=== PATIENT | female | born 1950 | race Caucasian/White ===

== ENCOUNTER 2016-09-12 11:53 | Inpatient (IN) | payer OTHER ==
[~2016-09-12] VITALS: Ht 152.4 cm; Wt 95.8 kg
[~2016-09-12 11:53] MED LIST: ATORVASTATIN CA80 MG PO; CEFTIN250 MG PO; CIPRO500 MG PO; CLINDAMYCIN HC300 MG PO; CONSTULOSE10 GM/15 M PO; COUMADIN1 MG PO; COUMADIN5 MG PO; DOXYCYCLINE HY100 MG PO; DULCOLAX5 MG PO; HYDROMORPHONE HC4 MG PO; K-DUR20 MEQ PO; LOVENOX100 MG/1 M SC; METRONIDAZOLE500 MG PO; MORPHINE SULFAT15 M1 PO; MORPHINE SULFAT30 M2 PO; MOVANTIK25 MG PO; MS CONTIN,ORAMO30 MG PO; PERCOCET 5/31 TABLET PO; PROBIOTIC1 EAC1 PO; ROXICODONE5 MG PO; SALINE NASAL SP45 ML BOTH NARES; VITAMIN E400 UNIT PO; WARFARIN SODIUM1 MG PO; WOMEN'S DAILY1 EAC1 PO; WOMEN'S DAILY1 EAC2 PO; XARELTO15 MG PO
[2016-09-12 13:16] LABS: HEMATOCRIT 29.7 % (36.0-46.0); MCH 23.2 PG (29.0-34.0); MEAN PLAT.VOLUME 9.6 uM^3 (9.5-12.4); PLATELET COUNT 440 K/uL (156-360); RBC DIS.WIDTH-CV 20.4 % (11.8-14.6); RBC DIS.WIDTH-SD 53.1 % (39-53); RED BLOOD COUNT 3.96 M/uL (3.80-5.20)
[2016-09-12 13:27] LABS: CHLORIDE 104 mEq/L (99-109); POTASSIUM 4.6 mEq/L (3.7-5.4); SODIUM 136 mEq/L (136-147)
[2016-09-12 13:29] LABS: GLUCOSE 121 mg/dL (70-99)
[2016-09-12 13:30] LABS: ANION GAP 13 MEQ/L (2-14)
[2016-09-12 13:32] LABS: GFR ESTIMATE (CALCULATED) 13 mL/min/
[2016-09-12 13:33] LABS: TROP-I INTERPRETATION NEGATIVE; TROPONIN-I < 0.01 ng/mL (0.0-0.30); UREA NITROGEN (BUN) 52 mg/dL (9-23)
[2016-09-12 13:42] LABS: ADD MIUA? YES; BILIRUBIN NEGATIVE; BLOOD MODERATE; GLUCOSE (STRIP) NEGATIVE; KETONES NEGATIVE; LEUKOCYTES LARGE; NITRITE NEGATIVE; PROTEIN (STRIP) >=300; SPECIFIC GRAVITY 1.017 (1.000-1.030); UROBILINOGEN 0.2 MG/DL (0.2-1.0)
[2016-09-12 13:43] LABS: COLOR LT YELLOW ((YELLOW))
[2016-09-12 14:27] LABS: WHITE BLOOD CELLS TNTC /HPF (0-5)
[2016-09-12 14:28] LABS: UCUL ADDED? YES
[2016-09-12] MEDS ORDERED: WARFARIN SODIUM1 MG PO (15:10)
[2016-09-12 17:51] LABS: INTER. NORMALIZED RATIO 3.1; PROTHROMBIN TIME 32.7 (9.2-11.2)
[2016-09-12 21:06] VITALS: BP 135/63
[2016-09-12 23:10] VITALS: BP 138/63
[2016-09-12 23:30] VITALS: BP 135/62
[2016-09-13 06:59] LABS: HEMATOCRIT 24.7 % (36.0-46.0); MCH 23.5 PG (29.0-34.0); MCHC 30.8 G/DL (30.0-36.0); MCV 76.2 FL (83-99); MEAN PLAT.VOLUME 9.5 uM^3 (9.5-12.4); PLATELET COUNT 358 K/uL (156-360); RBC DIS.WIDTH-CV 20.7 % (11.8-14.6); RBC DIS.WIDTH-SD 58.5 % (39-53); RED BLOOD COUNT 3.24 M/uL (3.80-5.20); WHITE BLOOD COUNT 7.9 K/uL (4.1-10.2)
[2016-09-13 07:02] LABS: INTER. NORMALIZED RATIO 3.5; PROTHROMBIN TIME 36.6 (9.2-11.2)
[2016-09-13 07:23] LABS: ALKALINE PHOSPHATASE 135 IU/L (3-129); ANION GAP 10 MEQ/L (2-14); CHLORIDE 106 MEQ/L (99-109); POTASSIUM 5.1 MEQ/L (3.7-5.4); SAMPLE HEMOLYSIS CHECK 0; SAMPLE ICTERIC CHECK 0; SAMPLE LIPEMIA CHECK 0; SODIUM 136 MEQ/L (136-147); TOTAL BILIRUBIN 0.4 MG/DL (0.0-1.0); UREA NITROGEN (BUN) 44 mg/dL (9-23)
[2016-09-13 07:37] LABS: GFR ESTIMATE (CALCULATED) 16 mL/min/; GLUCOSE 87 mg/dL (70-99)
[2016-09-13 08:00] VITALS: BP 132/70
[2016-09-13 12:52] LABS: HEMATOCRIT 26.3 % (36.0-46.0); MCV 78.3 FL (83-99)
[2016-09-13 16:41] VITALS: BP 140/73
[2016-09-13 22:51] VITALS: BP 122/70
[2016-09-14 07:17] LABS: HEMATOCRIT 27.5 % (36.0-46.0); MCH 23.5 PG (29.0-34.0); MCHC 30.2 G/DL (30.0-36.0); MCV 77.9 FL (83-99); MEAN PLAT.VOLUME 9.3 uM^3 (9.5-12.4); PLATELET COUNT 363 K/uL (156-360); RBC DIS.WIDTH-CV 20.6 % (11.8-14.6); RED BLOOD COUNT 3.53 M/uL (3.80-5.20)
[2016-09-14 07:44] LABS: ANION GAP 12 MEQ/L (2-14); CHLORIDE 101 MEQ/L (99-109); GFR ESTIMATE (CALCULATED) 16 mL/min/; GLUCOSE 77 mg/dL (70-99); POTASSIUM 4.1 MEQ/L (3.7-5.4); SAMPLE HEMOLYSIS CHECK 0; SAMPLE ICTERIC CHECK 0; SAMPLE LIPEMIA CHECK 0; SODIUM 133 MEQ/L (136-147); UREA NITROGEN (BUN) 42 mg/dL (9-23)
[2016-09-14 07:57] VITALS: BP 140/71
[2016-09-14 14:20] LABS: PROTHROMBIN TIME 60.2 (9.2-11.2)
[2016-09-14 14:22] LABS: INTER. NORMALIZED RATIO 5.6
[2016-09-14 14:23] LABS: HEM NON-PRINT 2 RPT-NC
[2016-09-14 16:07] VITALS: BP 128/75
[2016-09-14 23:25] VITALS: BP 134/67
[2016-09-15 06:19] LABS: PROTHROMBIN TIME 61.2 (9.2-11.2)
[2016-09-15 06:31] LABS: INTER. NORMALIZED RATIO 5.7
[2016-09-15 07:28] VITALS: BP 122/68
[2016-09-15 16:15] VITALS: BP 142/76
[2016-09-15 22:40] VITALS: BP 108/62
[2016-09-16 07:02] LABS: PROTHROMBIN TIME 120.5 (9.2-11.2)
[2016-09-16 07:51] LABS: ANION GAP 12 MEQ/L (2-14); CHLORIDE 103 MEQ/L (99-109); GFR ESTIMATE (CALCULATED) 22 mL/min/; GLUCOSE 90 mg/dL (70-99); POTASSIUM 3.9 MEQ/L (3.7-5.4); SAMPLE HEMOLYSIS CHECK 0; SAMPLE ICTERIC CHECK 0; SAMPLE LIPEMIA CHECK 0; SODIUM 133 MEQ/L (136-147); UREA NITROGEN (BUN) 33 mg/dL (9-23)
[2016-09-16 08:00] VITALS: BP 140/52
[2016-09-16 12:00] VITALS: BP 130/52
[2016-09-16 16:00] VITALS: BP 132/78
[2016-09-17 00:25] VITALS: BP 125/76
[2016-09-17 06:53] LABS: INTER. NORMALIZED RATIO 1.6; PROTHROMBIN TIME 16.7 (9.2-11.2)
[2016-09-17 07:52] VITALS: BP 107/55
[2016-09-17 16:05] VITALS: BP 105/50
[2016-09-17 23:09] VITALS: BP 114/55
[2016-09-18 06:53] LABS: EOSINOPHIL (%) 3.2 % (0-5); EOSINOPHIL COUNT 0.1 K/uL (0-0.3); HEMATOCRIT 25.3 % (36.0-46.0); LYMPHOCYTE COUNT 0.3 K/uL (1.0-2.8); MCH 23.2 PG (29.0-34.0); MCHC 30.8 G/DL (30.0-36.0); MCV 75.3 FL (83-99); MEAN PLAT.VOLUME 8.9 uM^3 (9.5-12.4); MONOCYTE (%) 10.4 % (3-12); MONOCYTE COUNT 0.5 K/uL (0-0.8); NEUTROPHIL (%) 79.4 % (45-76); NEUTROPHIL COUNT 3.5 K/uL (1.8-6.4); PLATELET COUNT 404 K/uL (156-360); RBC DIS.WIDTH-CV 20.5 % (11.8-14.6); RBC DIS.WIDTH-SD 56.9 % (39-53); RED BLOOD COUNT 3.36 M/uL (3.80-5.20)
[2016-09-18 06:54] LABS: WHITE BLOOD COUNT 4.4 K/uL (4.1-10.2)
[2016-09-18 07:04] LABS: INTER. NORMALIZED RATIO 1.6; PROTHROMBIN TIME 16.1 (9.2-11.2)
[2016-09-18 07:08] LABS: ALKALINE PHOSPHATASE 152 IU/L (3-129); ANION GAP 12 MEQ/L (2-14); CHLORIDE 101 MEQ/L (99-109); GFR ESTIMATE (CALCULATED) 27 mL/min/; GLUCOSE 108 mg/dL (70-99); POTASSIUM 3.7 MEQ/L (3.7-5.4); SAMPLE HEMOLYSIS CHECK 0; SAMPLE ICTERIC CHECK 0; SAMPLE LIPEMIA CHECK 0; SODIUM 131 MEQ/L (136-147); TOTAL BILIRUBIN 0.4 MG/DL (0.0-1.0); UREA NITROGEN (BUN) 28 mg/dL (9-23)
[2016-09-18 07:31] LABS: HEMATOLOGY COMMENT 1 SMEAR COMPATIBLE
[2016-09-18 08:17] VITALS: BP 120/68
[2016-09-18 19:58] VITALS: BP 116/59
[2016-09-18 23:25] VITALS: BP 103/60
[2016-09-19 03:45] VITALS: BP 120/67
[2016-09-19 06:07] LABS: HEMATOCRIT 23.9 % (36.0-46.0); MCH 23.6 PG (29.0-34.0); MCHC 31.4 G/DL (30.0-36.0); MCV 75.2 FL (83-99); MEAN PLAT.VOLUME 8.8 uM^3 (9.5-12.4); PLATELET COUNT 382 K/uL (156-360); RBC DIS.WIDTH-CV 20.6 % (11.8-14.6); RBC DIS.WIDTH-SD 56.9 % (39-53); RED BLOOD COUNT 3.18 M/uL (3.80-5.20); WHITE BLOOD COUNT 4.4 K/uL (4.1-10.2)
[2016-09-19 06:19] LABS: EOSINOPHIL (%) 2.3 % (0-5); EOSINOPHIL COUNT 0.1 K/uL (0-0.3); IMMATURE GRANULOCYTE (%) 0.2 % (0.0-0.7); LYMPHOCYTE COUNT 0.3 K/uL (1.0-2.8); MONOCYTE (%) 12.7 % (3-12); MONOCYTE COUNT 0.6 K/uL (0-0.8); NEUTROPHIL (%) 77.8 % (45-76); NEUTROPHIL COUNT 3.4 K/uL (1.8-6.4)
[2016-09-19 06:33] LABS: ALKALINE PHOSPHATASE 130 IU/L (3-129); ANION GAP 13 MEQ/L (2-14); CHLORIDE 103 MEQ/L (99-109); GFR ESTIMATE (CALCULATED) 32 mL/min/; GLUCOSE 87 mg/dL (70-99); POTASSIUM 3.6 MEQ/L (3.7-5.4); SAMPLE HEMOLYSIS CHECK 0; SAMPLE ICTERIC CHECK 0; SAMPLE LIPEMIA CHECK 0; SODIUM 133 MEQ/L (136-147); TOTAL BILIRUBIN 0.4 MG/DL (0.0-1.0); UREA NITROGEN (BUN) 25 mg/dL (9-23)
[2016-09-19 06:42] LABS: INTER. NORMALIZED RATIO 2.7
[2016-09-19 07:37] LABS: PTT 102.5 (25-32)
[2016-09-19 08:10] VITALS: BP 135/67
[2016-09-19 11:45] VITALS: BP 145/84
[2016-09-19 16:45] VITALS: BP 142/82
[2016-09-19 20:15] VITALS: BP 129/81
[2016-09-20] VITALS (7 sets, daily range): BP systolic 119–142; BP diastolic 69–82
[2016-09-20 07:12] LABS: HEMATOCRIT 25.4 % (36.0-46.0); MCH 23.2 PG (29.0-34.0); MCHC 30.3 G/DL (30.0-36.0); MCV 76.5 FL (83-99); MEAN PLAT.VOLUME 9.3 uM^3 (9.5-12.4); PLATELET COUNT 420 K/uL (156-360); RED BLOOD COUNT 3.32 M/uL (3.80-5.20); WHITE BLOOD COUNT 5.3 K/uL (4.1-10.2)
[2016-09-20 07:26] LABS: ANION GAP 14 MEQ/L (2-14); CHLORIDE 102 MEQ/L (99-109); GFR ESTIMATE (CALCULATED) 35 mL/min/; GLUCOSE 96 mg/dL (70-99); POTASSIUM 3.8 MEQ/L (3.7-5.4); SAMPLE HEMOLYSIS CHECK 0; SAMPLE ICTERIC CHECK 0; SAMPLE LIPEMIA CHECK 0; SODIUM 132 MEQ/L (136-147); UREA NITROGEN (BUN) 24 mg/dL (9-23)
[2016-09-20 08:58] LABS: EOSINOPHIL (%) 1.1 % (0-5); EOSINOPHIL COUNT 0.1 K/uL (0-0.3); HEMATOLOGY COMMENT 1 SMEAR COMPATIBLE; IMMATURE GRANULOCYTE COUNT 0.1 K/uL; LYMPHOCYTE COUNT 0.5 K/uL (1.0-2.8); MONOCYTE COUNT 0.8 K/uL (0-0.8); NEUTROPHIL (%) 74.1 % (45-76); NEUTROPHIL COUNT 3.9 K/uL (1.8-6.4); USER ID STC
[2016-09-20 09:10] LABS: INTER. NORMALIZED RATIO 4.6; PROTHROMBIN TIME 49.4 (9.2-11.2)
[2016-09-20 12:25] LABS: PROTHROMBIN TIME 51.8 (9.2-11.2)
[2016-09-20 13:39] LABS: INTER. NORMALIZED RATIO 4.8
[2016-09-21] VITALS (7 sets, daily range): BP systolic 120–144; BP diastolic 60–76
[2016-09-21 06:44] LABS: HEMATOCRIT 23.7 % (36.0-46.0); MCH 23.8 PG (29.0-34.0); MCHC 32.1 G/DL (30.0-36.0); MCV 74.1 FL (83-99); PLATELET COUNT 398 K/uL (156-360); RBC DIS.WIDTH-CV 20.9 % (11.8-14.6); RBC DIS.WIDTH-SD 57.1 % (39-53); WHITE BLOOD COUNT 4.9 K/uL (4.1-10.2)
[2016-09-21 07:07] LABS: ALKALINE PHOSPHATASE 135 IU/L (3-129); ANION GAP 12 MEQ/L (2-14); CHLORIDE 102 MEQ/L (99-109); GFR ESTIMATE (CALCULATED) 37 mL/min/; GLUCOSE 77 mg/dL (70-99); POTASSIUM 3.6 MEQ/L (3.7-5.4); SAMPLE HEMOLYSIS CHECK 0; SAMPLE ICTERIC CHECK 0; SAMPLE LIPEMIA CHECK 0; SODIUM 132 MEQ/L (136-147); UREA NITROGEN (BUN) 22 mg/dL (9-23)
[2016-09-21 07:08] LABS: TOTAL BILIRUBIN 0.3 MG/DL (0.0-1.0)
[2016-09-21 07:12] LABS: INTER. NORMALIZED RATIO 6.5; PROTHROMBIN TIME 70.3 (9.2-11.2)
[2016-09-21 07:18] LABS: EOSINOPHIL (%) 5.1 % (0-5); EOSINOPHIL COUNT 0.3 K/uL (0-0.3); IMMATURE GRANULOCYTE (%) 0.8 % (0.0-0.7); LYMPHOCYTE COUNT 0.2 K/uL (1.0-2.8); MONOCYTE (%) 16.6 % (3-12); MONOCYTE COUNT 0.8 K/uL (0-0.8); NEUTROPHIL (%) 72.8 % (45-76); NEUTROPHIL COUNT 3.5 K/uL (1.8-6.4)
[2016-09-21 07:53] LABS: HEMATOLOGY COMMENT 1 SMEAR COMPATIBLE; PLAT.SUFFICIENCY INCREASED; USER ID TLW
[2016-09-21 20:57] LABS: POINT-OF-CARE METER ID UU13113717
[2016-09-22 02:45] VITALS: BP 129/75
[2016-09-22 06:10] LABS: MCH 23.7 PG (29.0-34.0); MCHC 32.1 G/DL (30.0-36.0); MCV 73.8 FL (83-99); MEAN PLAT.VOLUME 8.5 uM^3 (9.5-12.4); PLATELET COUNT 330 K/uL (156-360); RBC DIS.WIDTH-CV 20.9 % (11.8-14.6); RED BLOOD COUNT 3.25 M/uL (3.80-5.20); WHITE BLOOD COUNT 5.3 K/uL (4.1-10.2)
[2016-09-22 06:30] LABS: PTT 99.7 (25-32)
[2016-09-22 06:35] LABS: ANION GAP 13 MEQ/L (2-14); CHLORIDE 102 MEQ/L (99-109); GFR ESTIMATE (CALCULATED) 40 mL/min/; GLUCOSE 77 mg/dL (70-99); POTASSIUM 3.5 MEQ/L (3.7-5.4); PROTHROMBIN TIME 58.4 (9.2-11.2); SAMPLE HEMOLYSIS CHECK 0; SAMPLE ICTERIC CHECK 0; SAMPLE LIPEMIA CHECK 0; SODIUM 132 MEQ/L (136-147); UREA NITROGEN (BUN) 22 mg/dL (9-23)
[2016-09-22 06:40] LABS: INTER. NORMALIZED RATIO 5.4
[2016-09-22 08:39] VITALS: BP 121/59
[2016-09-22 11:11] VITALS: BP 119/50
[2016-09-22 15:57] VITALS: BP 123/67
[2016-09-22 19:33] VITALS: BP 137/76
[2016-09-22 23:45] VITALS: BP 124/67
[2016-09-23 04:20] VITALS: BP 125/72
[2016-09-23 06:52] LABS: HEMATOCRIT 23.2 % (36.0-46.0); MCH 23.4 PG (29.0-34.0); MCHC 31.5 G/DL (30.0-36.0); MCV 74.4 FL (83-99); MEAN PLAT.VOLUME 8.8 uM^3 (9.5-12.4); PLATELET COUNT 377 K/uL (156-360); RBC DIS.WIDTH-CV 21.1 % (11.8-14.6); RBC DIS.WIDTH-SD 58.2 % (39-53); RED BLOOD COUNT 3.12 M/uL (3.80-5.20); WHITE BLOOD COUNT 6.6 K/uL (4.1-10.2)
[2016-09-23 07:16] LABS: EOSINOPHIL (%) 2.6 % (0-5); EOSINOPHIL COUNT 0.2 K/uL (0-0.3); IMMATURE GRANULOCYTE (%) 1.2 % (0.0-0.7); IMMATURE GRANULOCYTE COUNT 0.1 K/uL; LYMPHOCYTE COUNT 0.3 K/uL (1.0-2.8); MONOCYTE (%) 10.7 % (3-12); MONOCYTE COUNT 0.7 K/uL (0-0.8); NEUTROPHIL (%) 80.8 % (45-76); NEUTROPHIL COUNT 5.4 K/uL (1.8-6.4)
[2016-09-23 07:28] VITALS: BP 119/67
[2016-09-23 07:31] LABS: ALKALINE PHOSPHATASE 168 IU/L (3-129); ANION GAP 11 MEQ/L (2-14); CHLORIDE 102 MEQ/L (99-109); GFR ESTIMATE (CALCULATED) 37 mL/min/; GLUCOSE 88 mg/dL (70-99); SAMPLE HEMOLYSIS CHECK 0; SAMPLE ICTERIC CHECK 0; SAMPLE LIPEMIA CHECK 0; SODIUM 129 MEQ/L (136-147); UREA NITROGEN (BUN) 24 mg/dL (9-23)
[2016-09-23 07:32] LABS: TOTAL BILIRUBIN 0.4 MG/DL (0.0-1.0)
[2016-09-23 08:13] LABS: PTT 89.2 (25-32)
[2016-09-23 08:19] LABS: PROTHROMBIN TIME 71.1 (9.2-11.2)
[2016-09-23 08:20] LABS: INTER. NORMALIZED RATIO 6.6
[2016-09-23 11:53] VITALS: BP 99/58
[2016-09-23 16:05] VITALS: BP 127/70
[2016-09-23 19:50] VITALS: BP 136/77
[2016-09-23 23:18] VITALS: BP 118/66
[2016-09-24 03:01] VITALS: BP 119/56
[2016-09-24 07:48] LABS: HEMATOCRIT 23.9 % (36.0-46.0); MCH 23.4 PG (29.0-34.0); MCHC 31.4 G/DL (30.0-36.0); MCV 74.7 FL (83-99); PLATELET COUNT 364 K/uL (156-360); RBC DIS.WIDTH-CV 21.2 % (11.8-14.6); RBC DIS.WIDTH-SD 58.3 % (39-53); WHITE BLOOD COUNT 6.2 K/uL (4.1-10.2)
[2016-09-24 08:00] VITALS: BP 114/59
[2016-09-24 08:00] LABS: EOSINOPHIL (%) 1.4 % (0-5); EOSINOPHIL COUNT 0.1 K/uL (0-0.3); IMMATURE GRANULOCYTE (%) 2.6 % (0.0-0.7); IMMATURE GRANULOCYTE COUNT 0.2 K/uL; LYMPHOCYTE COUNT 0.3 K/uL (1.0-2.8); MONOCYTE (%) 5.5 % (3-12); MONOCYTE COUNT 0.3 K/uL (0-0.8); NEUTROPHIL COUNT 5.3 K/uL (1.8-6.4)
[2016-09-24 08:05] LABS: PTT 88.2 (25-32)
[2016-09-24 08:20] LABS: ALKALINE PHOSPHATASE 178 IU/L (3-129); ANION GAP 12 MEQ/L (2-14); CHLORIDE 104 MEQ/L (99-109); GFR ESTIMATE (CALCULATED) 30 mL/min/; GLUCOSE 74 mg/dL (70-99); POTASSIUM 4.6 MEQ/L (3.7-5.4); SAMPLE HEMOLYSIS CHECK 0; SAMPLE ICTERIC CHECK 0; SAMPLE LIPEMIA CHECK 0; SODIUM 131 MEQ/L (136-147); TOTAL BILIRUBIN 0.4 MG/DL (0.0-1.0); UREA NITROGEN (BUN) 25 mg/dL (9-23)
[2016-09-24 08:34] LABS: INTER. NORMALIZED RATIO 7.7; PROTHROMBIN TIME 83.1 (9.2-11.2)
[2016-09-24 08:37] LABS: HEMATOLOGY COMMENT 1 REV; USER ID NJR
[2016-09-24 10:45] VITALS: BP 107/62
[2016-09-24 16:09] VITALS: BP 119/63
[2016-09-24 23:11] VITALS: BP 99/58
[2016-09-25] VITALS (11 sets, daily range): BP systolic 95–154; BP diastolic 50–84
[2016-09-25 06:26] LABS: PTT 67.2 (25-32)
[2016-09-25 06:39] LABS: ALKALINE PHOSPHATASE 153 IU/L (3-129); ANION GAP 10 MEQ/L (2-14); CHLORIDE 104 MEQ/L (99-109); GFR ESTIMATE (CALCULATED) 23 mL/min/; POTASSIUM 4.3 MEQ/L (3.7-5.4); SAMPLE HEMOLYSIS CHECK 0; SAMPLE ICTERIC CHECK 0; SAMPLE LIPEMIA CHECK 0; SODIUM 129 MEQ/L (136-147); TOTAL BILIRUBIN 0.4 MG/DL (0.0-1.0); UREA NITROGEN (BUN) 33 mg/dL (9-23)
[2016-09-25 06:43] LABS: GLUCOSE 103 mg/dL (70-99)
[2016-09-25 06:46] LABS: PROTHROMBIN TIME 20.3 (9.2-11.2)
[2016-09-25 07:04] LABS: EOSINOPHIL (%) 0.8 % (0-5); HEMATOCRIT 22.4 % (36.0-46.0); IMMATURE GRANULOCYTE COUNT 0.1 K/uL; LYMPHOCYTE COUNT 0.2 K/uL (1.0-2.8); MCH 23.1 PG (29.0-34.0); MCHC 30.8 G/DL (30.0-36.0); MCV 74.9 FL (83-99); MONOCYTE (%) 12.5 % (3-12); MONOCYTE COUNT 0.6 K/uL (0-0.8); NEUTROPHIL (%) 81.1 % (45-76); PLATELET COUNT 300 K/uL (156-360); RBC DIS.WIDTH-CV 21.4 % (11.8-14.6); RED BLOOD COUNT 2.99 M/uL (3.80-5.20)
[2016-09-26 06:46] LABS: EOSINOPHIL (%) 0 % (0-5); HEMATOCRIT 31.7 % (36.0-46.0); IMMATURE GRANULOCYTE (%) 1.5 % (0.0-0.7); IMMATURE GRANULOCYTE COUNT 0.2 K/uL; INTER. NORMALIZED RATIO 1.2; LYMPHOCYTE COUNT 0.3 K/uL (1.0-2.8); MCH 24.9 PG (29.0-34.0); MCHC 32.5 G/DL (30.0-36.0); MCV 76.6 FL (83-99); MEAN PLAT.VOLUME 9.1 uM^3 (9.5-12.4); MONOCYTE (%) 1.8 % (3-12); MONOCYTE COUNT 0.2 K/uL (0-0.8); NEUTROPHIL (%) 93.6 % (45-76); NEUTROPHIL COUNT 9.2 K/uL (1.8-6.4); PLATELET COUNT 304 K/uL (156-360); PROTHROMBIN TIME 12.1 (9.2-11.2); PTT 47.1 (25-32); RBC DIS.WIDTH-CV 20.4 % (11.8-14.6); RBC DIS.WIDTH-SD 57.5 % (39-53)
[2016-09-26 06:50] LABS: RED BLOOD COUNT 4.14 M/uL (3.80-5.20); WHITE BLOOD COUNT 9.8 K/uL (4.1-10.2)
[2016-09-26 07:11] LABS: ALKALINE PHOSPHATASE 159 IU/L (3-129); ANION GAP 10 MEQ/L (2-14); CHLORIDE 103 MEQ/L (99-109); GFR ESTIMATE (CALCULATED) 27 mL/min/; POTASSIUM 4.7 MEQ/L (3.7-5.4); SAMPLE HEMOLYSIS CHECK 0; SAMPLE ICTERIC CHECK 0; SAMPLE LIPEMIA CHECK 0; SODIUM 129 MEQ/L (136-147); UREA NITROGEN (BUN) 37 mg/dL (9-23)
[2016-09-26 07:12] LABS: GLUCOSE 229 mg/dL (70-99); TOTAL BILIRUBIN 0.3 MG/DL (0.0-1.0)
[2016-09-26 08:00] LABS: HEMATOLOGY COMMENT 1 SMEAR COMPATIBLE; PLAT.SUFFICIENCY ADEQUATE; USER ID MCB
[2016-09-26 08:12] VITALS: BP 133/83
[2016-09-26 15:42] VITALS: BP 123/77
[2016-09-26 22:16] VITALS: BP 136/78
[2016-09-27 07:12] LABS: INTER. NORMALIZED RATIO 1.2; PROTHROMBIN TIME 12.4 (9.2-11.2)
[2016-09-27 07:26] LABS: HEMATOCRIT 33.3 % (36.0-46.0); MCH 25.5 PG (29.0-34.0); MCV 77.1 FL (83-99); MEAN PLAT.VOLUME 9.4 uM^3 (9.5-12.4); PLATELET COUNT 339 K/uL (156-360); RBC DIS.WIDTH-CV 20.7 % (11.8-14.6); RED BLOOD COUNT 4.32 M/uL (3.80-5.20)
[2016-09-27 07:30] LABS: WHITE BLOOD COUNT 13.4 K/uL (4.1-10.2)
[2016-09-27 07:32] LABS: ALKALINE PHOSPHATASE 147 IU/L (3-129); ANION GAP 11 MEQ/L (2-14); CHLORIDE 104 MEQ/L (99-109); GFR ESTIMATE (CALCULATED) 32 mL/min/; GLUCOSE 165 mg/dL (70-99); POTASSIUM 5.1 MEQ/L (3.7-5.4); SAMPLE HEMOLYSIS CHECK 0; SAMPLE ICTERIC CHECK 0; SAMPLE LIPEMIA CHECK 0; SODIUM 131 MEQ/L (136-147); UREA NITROGEN (BUN) 38 mg/dL (9-23)
[2016-09-27 07:33] VITALS: BP 138/78
[2016-09-27 07:37] LABS: TOTAL BILIRUBIN 0.2 MG/DL (0.0-1.0)
[2016-09-27 16:05] VITALS: BP 154/77
[2016-09-27 23:59] VITALS: BP 126/76
[2016-09-28 07:01] LABS: INTER. NORMALIZED RATIO 1.7; PROTHROMBIN TIME 17.6 (9.2-11.2)
[2016-09-28 07:45] VITALS: BP 143/66
[2016-09-28 16:45] VITALS: BP 154/94
[2016-09-28 23:23] VITALS: BP 138/78
[2016-09-29 06:57] LABS: INTER. NORMALIZED RATIO 2.6
[2016-09-29 06:58] LABS: PROTHROMBIN TIME 26.9 (9.2-11.2)
[2016-09-29 08:29] VITALS: BP 162/95
[2016-09-29] MEDS ORDERED: SODIUM CHLORIDE1 G1 PO (13:13)
[2016-09-29] MEDS ORDERED: PHENERGAN-CODE120 ML PO (13:13)
[2016-09-29] MEDS ORDERED: FENTANYL1 EAC4 TD (13:13)
[2016-09-29] MEDS ORDERED: DUONEB 2.5-0.5 M3 ML AEROSOL (13:13)
[2016-09-29] MEDS ORDERED: Chronulac,Cephulac,E PO (13:13)
[2016-09-29] MEDS ORDERED: K-DUR20 MEQ PO (13:13)
[2016-09-29] MEDS ORDERED: ONDANSETRON ODT4 MG PO (13:13)
[2016-09-29] MEDS ORDERED: NABI650T PO (13:13)
[2016-09-29] MEDS ORDERED: HYDROMORPHONE HC4 MG PO (13:13)
[2016-09-29] MEDS ORDERED: ACIDOPHILUS LA1 EACH PO (13:13)
[2016-09-29] MEDS ORDERED: PREDNISONE5 M1 PO (13:17)
[2016-09-29 17:08] VITALS: BP 147/95
[2016-09-29 18:58] LABS: INTER. NORMALIZED RATIO 2.5; PROTHROMBIN TIME 25.9 (9.2-11.2)
[2016-09-29 23:42] VITALS: BP 137/95
[2016-09-30 06:49] LABS: INTER. NORMALIZED RATIO 2.6; PROTHROMBIN TIME 27.1 (9.2-11.2)
[2016-09-30 07:46] VITALS: BP 136/96
== END 2016-09-30 15:30 | disposition hospice, home (50) | DRG 754 ==
LOC: EME 11:53 → 5EAST 14:43 → EDOF 14:43 → 5EAST 20:32 → 4EAST 09-18 20:03 → 5EAST 09-21 15:24
PROVIDERS: Emergency Medicine; Internal Medicine; Internal Medicine Hematology & Oncology; Nurse Practitioner Adult Health; Pediatrics; Physician Assistant
PROC: 30233N1 Transfusion of Nonautologous Red Blood Cells into Peripheral Vein, Percutaneous Approach (ICD-10-PCS; principal; 2016-09-25)
DX: C51.9 Malignant neoplasm of vulva, unspecified (principal); J18.9 Pneumonia, unspecified organism; N17.9 Acute kidney failure, unspecified; E86.0 Dehydration; N39.0 Urinary tract infection, site not specified; B96.20 Unspecified Escherichia coli [E. coli] as the cause of diseases classified elsewhere; I82.411 Acute embolism and thrombosis of right femoral vein; I82.421 Acute embolism and thrombosis of right iliac vein; I82.431 Acute embolism and thrombosis of right popliteal vein; I82.491 Acute embolism and thrombosis of other specified deep vein of right lower extremity; C77.5 Secondary and unspecified malignant neoplasm of intrapelvic lymph nodes; C22.9 Malignant neoplasm of liver, not specified as primary or secondary; N13.1 Hydronephrosis with ureteral stricture, not elsewhere classified; E87.1 Hypo-osmolality and hyponatremia; E87.6 Hypokalemia; D63.0 Anemia in neoplastic disease; N18.9 Chronic kidney disease, unspecified; I89.0 Lymphedema, not elsewhere classified; E66.9 Obesity, unspecified; Z68.41 Body mass index [BMI] 40.0-44.9, adult; G89.3 Neoplasm related pain (acute) (chronic); Z16.12 Extended spectrum beta lactamase (ESBL) resistance; D75.82 Heparin induced thrombocytopenia (HIT); Z66 Do not resuscitate; Z51.5 Encounter for palliative care; M54.5 Low back pain; K59.00 Constipation, unspecified; E88.09 Other disorders of plasma-protein metabolism, not elsewhere classified; R26.2 Difficulty in walking, not elsewhere classified; Z93.6 Other artificial openings of urinary tract status; Z86.711 Personal history of pulmonary embolism; Z79.01 Long term (current) use of anticoagulants; Z79.899 Other long term (current) drug therapy; Z90.710 Acquired absence of both cervix and uterus; Z88.1 Allergy status to other antibiotic agents; Z88.2 Allergy status to sulfonamides; Z92.3 Personal history of irradiation
CPT/HCPCS: 71010; 76770; 80048; 80053; 80069; 81003; 82948; 84484; 85014; 85018; 85025; 85027; 85610; 85730; 86850; 86900; 86901; 86920; 87077; 87086; 87186; 93971; 94640; 94640 76; 94760; 94799; 99281; 99285; C9113; C9121; J0456; J0696; J2270; J2405; J2930; J7030; J7050; J7120; J7512; P9016